=== PATIENT | male | born 1985 | race Caucasian/White ===

== ENCOUNTER 2017-06-16 18:24 | Emergency (ER) | payer SELFPAY ==
--- NOTE | 2017-06-16 18:29 | EDPHY ---
H & P HPI/ROS: CHIEF COMPLAINT: Injury to left long finger HISTORY OF PRESENT ILLNESS: This is a 32-year-old male who severed the tip of his left long finger while working with a joining saw. He can immediately to the emergency department. No other injuries. He is left-hand dominant. 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 He thinks that his tetanus is up-to-date. REVIEW OF SYSTEMS: A ten point review of systems was performed and is negative with the exception of the items mentioned in the HPI. 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 He is . - Physical Exam Exam: General Appearance: Alert. Vital signs reviewed. Initial blood pressure 134/ 84. A focused exam was performed. Eyes: Pupils equal and round. Extraocular muscles intact. Respiratory: Lungs are clear to auscultation; no wheezes, rales, or rhonchi. Cardiovascular: Regular rate and rhythm; no murmur, rub, or gallop. Gastrointestinal: Abdomen is soft and nontender. Skin: Warm and dry, no rashes on exposed skin, normal color. Pulses: 2+ radial pulse on the left. Extremities: Partial amputation of the distal aspect of the left index finger. Fingernail is gone. Soft tissue of the distal finger remains, with exposed bone. He is able to flex and extend at the MCP, PIP, and the DI P. The amputation is distal to the DI P. there is moderate bleeding. Sensation is decreased over the left index finger. Neurological: Alert and oriented. Moving all four extremities easily and equally. Psychiatric: Normal affect. Constitutional: Initial Vital Signs Temperature (C) 36.7 C 06/16/17 18:27 Heart Rate 89 06/16/17 18:27 Respiratory Rate 16 06/16/17 18:27 Blood Pressure 134/84 H 06/16/17 18:27 O2 Sat (%) 99 06/16/17 18:27 O2 Delivery Mode Room Air Allergies/Adverse Reactions: No Known Allergies Allergy (Unverified 06/16/17 18:28) Home Medications: Medication Instructions Recorded NK [No Known Home Meds] 06/16/17 Medical Decision Making - Diagnostics Imaging Results: Imaging Impressions Finger X-Ray 06/16/17 18:30 Impression: Partial amputation of the distal end of the distal phalanx of the left second digit. ED Course/Re-evaluation: Partial amputation of the distal aspect of the left index finger. Digital block of the left index finger using lidocaine 1% was performed by me. Wound was irrigated by the emergency department laser/electro optics technician. I reviewed the x-ray. Ancef 1 g IV was given. Repair was performed by Dr. Mendoza in the emergency department. Differential Diagnosis: I considered a differential diagnosis that includes but is not limited to partial amputation, open fracture, nerve injury, vascular injury, and dislocation. - Data Points Medications Given: Discontinued Medications Cefazolin Sodium/Dextrose (Ancef 1 Gm (Premix)) 50 mls @ 200 mls/hr IV EDNOW ONE PRN Reason: Protocol Stop: 06/16/17 18:43 Last Admin: 06/16/17 18:57 Dose: 50 mls Cefazolin Sodium/Dextrose (Ancef 1 Gm (Premix)) 50 mls @ 200 mls/hr IV EDNOW ONE PRN Reason: Protocol Stop: 06/16/17 19:19 Last Admin: 06/16/17 19:26 Dose: Not Given Departure - Departure Disposition: Home, Routine, Self-Care Clinical Impression: Finger amputation, traumatic Qualifiers: Encounter type: initial encounter Qualified Code(s): S68.119A - Complete traumatic metacarpophalangeal amputation of unspecified finger, initial encounter Condition: Good Instructions: Finger Amputation (ED) Additional Instructions: Follow up with Dr. Mendoza as instructed. Use the [place] for pain as needed. Take antibiotic, Keflex, as prescribed.
[2017-06-16 18:38] VITALS: RESP 16
[2017-06-16] MEDS ORDERED: ceFAZolin 1 GM VIAL ONE (18:50)
[2017-06-16] MEDS ORDERED: NS 100 ML BAG (MINI-BAG) IV ONE (18:51)
[2017-06-16 19:28] VITALS: PULSE 73
[2017-06-16] MEDS ORDERED: CEPHALEXIN 500MG PREPACK#4 BTL TAKEHOME ONE (20:47)
[2017-06-16] MEDS ORDERED: HYDROCOD/APAP 5/325 PREPACK#6 BTL TAKEHOME ONE (20:47)
[2017-06-16 20:58] VITALS: TEMP 98.2
--- NOTE | 2017-06-16 21:01 | GCON ---
[f rep st] CONSULTATION DATE OF CONSULTATION: 06/16/2017 ER CONSULT AND PROCEDURE NOTE REASON FOR CONSULTATION: Partial amputation left second finger through distal interphalangeal joint . 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 He had his finger cut on the machine and was brought to the emergency room. Evaluation revealed a missing fingertip through the base of the nail and into the mid point of the distal phalanx. The stump was v isible. There was a reasonable volar flap of tissue. There was very small remaining nail matrix. PAST MEDICAL HISTORY: ALLERGIES: None. MEDS: None. REVIEW OF SYSTEMS: Negative. PREVIOUS SURGERY: None. PHYSICAL EXAMINATION: The patient's left second finger has an amputation through the distal phalanx . Moderate amount of volar skin left that we could use to create a flap. Moderate remaining nail mat leigh. TREATMENT: Thorough cleansing was performed. The patient was administered Ancef 2 g IV. The nail ma trix was debrided removing the remaining portion of the nail matrix underneath the eponychial nail f old. A small amount of macerated tissue was removed. The distal skin was fashioned appropriately to get a reasonable kumar flap closure. This was then brought dorsally and tacked to the dorsal skin a nd eponychial folds, both medially and laterally. We felt we had good closure. The patient is placed in a sterile dressing and splint. DISPOSITION: The patient will be discharged. He is going to be given a prescription for Keflex 500 mg p.o. q.6 hours x10 days. He will also be given a prescription for pain medicine, [place] 5325, 1-2 tabs p.o. q.4 hours p.r.n. /[id number]/MODL
[2017-06-16 21:23] VITALS: BP 114/79; O2SAT 97
== END 2017-06-16 21:23 | disposition home or self-care (01) ==
LOC: CED 18:24
PROC: 3E0T3CZ (ICD-10-PCS; principal; 2017-06-16)
DX: S68.621A Partial traumatic transphalangeal amputation of left index finger, initial encounter (principal); W27.0XXA Contact with workbench tool, initial encounter
CPT/HCPCS: 73140-PO; 96365; J0690